=== PATIENT | female | born 1960 | race Caucasian/White ===

== ENCOUNTER 2016-07-17 12:03 | Day surgery (SDC) | payer BC ==
[~2016-07-17 12:03] MED LIST: ALPRAZolam 0.5 MG TAB PO ONE
[2016-07-17 12:27] VITALS: RESP 14; TEMP 97.8
[2016-07-17 13:32] VITALS: BP 141/78; PULSE 94
--- NOTE | 2016-07-17 13:44 | US ---
ULTRASOUND GUIDED FNA THYROID BIOPSY: CLINICAL HISTORY: 1.4 cm right thyroid nodule FINDINGS: The procedure was explained to the patient. The risks, complications, benefits and alternatives were discussed and any questions were answered. Informed consent was obtained. Patient was placed supin e on the ultrasound table and prepped and draped in the usual sterile fashion. Utilizing a 25 gauge needle, five passes were made into the requested nodule. Patient was stable throughout the procedure. Pathology is pending. All elements of maximal barrier technique were utilized. IMPRESSION: 1. Successful ultrasound guided FNA thyroid biopsy.
== END 2016-07-17 13:38 | disposition home or self-care (01) ==
LOC: RADPROMAIN 12:03
PROVIDERS: ATTEND Family Medicine
DX: E04.1 Nontoxic single thyroid nodule (principal)
CPT/HCPCS: 10022; 76942; 88173; 88305

== ENCOUNTER → 2017-09-07 | Outpatient (CLI) | payer BC | END | disposition home or self-care (01) | LOC: LABWHC1 08:44 | PROVIDERS: ATTEND Internal Medicine Endocrinology, Diabetes & Metabolism | DX: E03.8 Other specified hypothyroidism (principal) | CPT/HCPCS: 36415; 84443 ==

== ENCOUNTER → 2018-03-07 | Outpatient (CLI) | payer BC ==
--- NOTE | 2018-03-07 09:58 | US ---
EXAMINATION TYPE: US thyroid st tissue head/neck DATE OF EXAM: 03/07/2018 COMPARISON: FNA 06/2016 . Thyroid ultrasound report March 28, 2016 CLINICAL HISTORY: E04.1 SINGLE THYROID NODULE. GLAND SIZE: Right Lobe: 4.2 x1.0 x 1.1 cm Overall Parenchyma: homogenous Left Lobe: 3.9 x 1.0 x 0.8 cm Overall Parenchyma: homogeneous Isthmus Thickness: 0.2 cm NODULES RIGHT: # of nodules measured on right: 1 1. 0.9 X 1.3 x 0.5 cm mixed nodule at the mid pole with well-defined margins; . This nodule is wid er than tall and shows intranodular vascularity. Prior size: no measurement but FNA LEFT: # of nodules measured on left: 0 ISTHMUS: # of nodules measured in the isthmus: 0 Bilateral neck scanned, no evidence of lymphadenopathy. Small sized homogeneous thyroid with stable right-sided nodule that was sampled in 2017. No new nodul es are evident. IMPRESSION: As above.
== END ==
LOC: RADUSWWP 09:27
PROVIDERS: ATTEND Internal Medicine Endocrinology, Diabetes & Metabolism
DX: E04.1 Nontoxic single thyroid nodule (principal)
CPT/HCPCS: 76536

== ENCOUNTER → 2018-09-20 | Outpatient (CLI) | payer BC ==
[2018-09-20 15:46] LABS: T4, Free (Free Thyroxine) 1.2 ng/dL (0.80-1.80)
== END | disposition home or self-care (01) ==
LOC: LABWHC1 08:46
PROVIDERS: ATTEND Internal Medicine Endocrinology, Diabetes & Metabolism
DX: E04.1 Nontoxic single thyroid nodule (principal)
CPT/HCPCS: 36415; 84439; 84443

== ENCOUNTER → 2019-03-21 | Outpatient (CLI) | payer BC ==
--- NOTE | 2019-03-21 10:24 | US ---
EXAMINATION TYPE: US thyroid st tissue head/neck DATE OF EXAM: 03/21/2019 COMPARISON: US 03/07/2018 and 03/28/2016. CLINICAL HISTORY: E04.1 Thyroid Nodule. GLAND SIZE: Right Lobe: 4.4 x 1.0 x 1.2 cm Overall Parenchyma: homogenous Left Lobe: 3.9 x 0.7 x 0.9 cm Overall Parenchyma: homogeneous Isthmus Thickness: 0.2 cm NODULES RIGHT: # of nodules measured on right: 1 1. 1.6 X 0.8 x 1.0 cm isoechoic solid nodule at the lower pole with well-defined margins; . This n odule is wider than tall and shows intranodular vascularity. Prior size: 1.3 x 0.9 x 0.5 cm LEFT: # of nodules measured on left: 0 ISTHMUS: # of nodules measured in the isthmus: 0 Bilateral neck scanned, no evidence of lymphadenopathy. IMPRESSION: Solid right thyroid nodule has slightly increased from the prior of 2018. As this has onl y minimally grown from the exam of 2016 (measured 1.5 cm in largest dimension on that exam and now me asures 1.6 cm) follow-up thyroid ultrasound in one year would be recommended.
== END | disposition home or self-care (01) ==
LOC: RADUSWWP 08:38
PROVIDERS: ATTEND Internal Medicine Endocrinology, Diabetes & Metabolism
DX: E04.1 Nontoxic single thyroid nodule (principal); E03.8 Other specified hypothyroidism
CPT/HCPCS: 36415; 76536; 84443

== ENCOUNTER → 2020-03-12 | Outpatient (CLI) | payer BC ==
--- NOTE | 2020-03-12 12:43 | US ---
EXAMINATION TYPE: US thyroid st tissue head/neck DATE OF EXAM: 03/12/2020 COMPARISON: NONE CLINICAL HISTORY: E04.1 single thyroid nodule. Thyroid nodule GLAND SIZE: Right Lobe: 3.9 x 1.5 x 1.3 cm Overall Parenchyma: homogenous Left Lobe: 3.8 x .9 x 1.0 cm Overall Parenchyma: homogeneous Isthmus Thickness: .2 cm NODULES RIGHT: # of nodules measured on right: 1 1. 1.7 X .8 x .9 cm isoechoic solid nodule at the mid pole with well-defined margins; . This nodul e is wider than tall and shows intranodular vascularity. Prior size: 1.6 x .8 x 1.0 cm LEFT: # of nodules measured on left: 0 ISTHMUS: # of nodules measured in the isthmus: 0 Bilateral neck scanned, no evidence of lymphadenopathy. IMPRESSION: 1. Stable thyroid nodule right lobe thyroid
== END | disposition home or self-care (01) ==
LOC: RADUSWWP 08:47
PROVIDERS: ATTEND Internal Medicine Endocrinology, Diabetes & Metabolism
DX: E04.1 Nontoxic single thyroid nodule (principal); E03.8 Other specified hypothyroidism
CPT/HCPCS: 36415; 76536; 84443

== ENCOUNTER → 2021-03-22 | Outpatient (CLI) | payer BC ==
[2021-03-22 09:58] LABS: T4, Free (Free Thyroxine) 1.17 ng/dL (0.78-2.19)
--- NOTE | 2021-03-22 11:03 | US ---
EXAMINATION TYPE: US thyroid st tissue head/neck DATE OF EXAM: 03/22/2021 COMPARISON: Thyroid ultrasound March 12, 2020 and older studies. CLINICAL HISTORY: E04.1 NONTOXIC SINGLE THYROID. Follow up right thyroid nodule. GLAND SIZE: Right Lobe: 4.2 x 1.2 x 1.0 cm Overall Parenchyma: heterogenous Left Lobe: 3.8 x 1.0 x 0.6 cm Overall Parenchyma: homogeneous Isthmus Thickness: 0.2 cm NODULES RIGHT: # of nodules measured on right: 1 1. 1.7 X 1.0 x 0.7 cm, mid , solid or almost completely solid, isoechoic nodule, which is wider ricky n tall, with smooth margins, without echogenic foci. Prior size: 1.7 x 0.8 x 0.9 cm LEFT: # of nodules measured on left: 0 ISTHMUS: # of nodules measured in the isthmus: 0 Bilateral neck scanned, no evidence of lymphadenopathy. Heterogeneous somewhat small size thyroid redemonstrated. There is stable isoechoic 1.7 cm oval anter ior right thyroid nodule. No new nodules are seen. IMPRESSION: As above. No significant change from most recent study.
== END | disposition home or self-care (01) ==
LOC: RADUSWWP 08:03
PROVIDERS: ATTEND Internal Medicine Endocrinology, Diabetes & Metabolism
DX: E04.1 Nontoxic single thyroid nodule (principal)
CPT/HCPCS: 36415; 76536; 84439; 84443

== ENCOUNTER → 2022-03-17 | Outpatient (CLI) | payer BC ==
--- NOTE | 2022-03-17 09:31 | US ---
EXAMINATION TYPE: US thyroid st tissue head/neck DATE OF EXAM: 03/17/2022 COMPARISON: CLINICAL HISTORY: E04.1 NONTOXIC SINGLE THYROID NODULE. Follow up thyroid nodule. On thyroid meds. GLAND SIZE: Right Lobe: 4.2 x 1.2 x 1.2 cm Overall Parenchyma: heterogenous Left Lobe: 3.9 x 1.0 x 0.7 cm Overall Parenchyma: heterogeneous Isthmus Thickness: 0.2 cm NODULES RIGHT: # of nodules measured on right: 1. 1.7 X 1.0 x 0.7 cm, mid lateral/mid, solid or almost completely solid, isoechoic nodule, which i s wider than tall, with smooth margins, without echogenic foci. Prior size: 1.7 x 1.0 x 0.7 cm LEFT: # of nodules measured on left: 0 ISTHMUS: # of nodules measured in the isthmus: 0 Bilateral neck scanned, no evidence of lymphadenopathy. IMPRESSION: Stable nonspecific thyroid nodularity
[2022-03-17 16:14] LABS: T4, Free (Free Thyroxine) 1.35 ng/dL (0.800-1.800)
== END | disposition home or self-care (01) ==
LOC: RADUSWWP 08:28
PROVIDERS: ATTEND Internal Medicine Endocrinology, Diabetes & Metabolism
DX: E04.2 Nontoxic multinodular goiter (principal)
CPT/HCPCS: 76536; 84439; 84443

== ENCOUNTER → 2023-03-09 | Outpatient (CLI) | payer BC ==
--- NOTE | 2023-03-09 09:33 | US ---
EXAMINATION TYPE: US thyroid st tissue head/neck DATE OF EXAM: 03/09/2023 COMPARISON: NONE CLINICAL INDICATION: Female, 62 years old with history of E041 NONTOXIC SINGLE THYROID; thyroid nodul e GLAND SIZE: Right Lobe: 4.3 x 1.1 x 1.5 cm Overall Parenchyma: homogenous Left Lobe: 4.3 x .8 x 1.3 cm Overall Parenchyma: homogeneous Isthmus Thickness: .2 cm NODULES RIGHT: # of nodules measured on right: 1 1. 1.9 X 1.0 x 1.4 cm, mid , solid or almost completely solid, hypoechoic nodule, which is wider th an tall, with smooth margins, without echogenic foci. Prior size: 1.7 x .7 x 1.0 cm LEFT: # of nodules measured on left: 0 ISTHMUS: # of nodules measured in the isthmus: 0 Bilateral neck scanned, no evidence of lymphadenopathy. IMPRESSION: Enlarging nodule. Tissue diagnosis is recommended. 2017 ACR TI-RADS LEVEL: TR4 *Highest TI-RADS level nodule reported
[2023-03-09 16:26] LABS: T4, Free (Free Thyroxine) 1.43 ng/dL (0.80-1.80)
== END | disposition home or self-care (01) ==
LOC: RADUSWWP 08:09
PROVIDERS: ATTEND Internal Medicine Endocrinology, Diabetes & Metabolism
DX: E04.1 Nontoxic single thyroid nodule (principal)
CPT/HCPCS: 76536; 84439; 84443